=== PATIENT | female | born 2000 | race Caucasian/White ===

== ENCOUNTER 2022-04-20 18:35 | Emergency (ER) | payer MEDICAID ==
[~2022-04-20] VITALS: Ht 152.4 cm; Wt 59.0 kg
[2022-04-20 18:36] VITALS: BP_SYST 98
--- NOTE | 2022-04-20 18:36 | NUR ---
Patient to AMB1. Side rails up.AWAITING BED ASSIGNMENT.
--- NOTE | 2022-04-20 18:40 | NUR ---
STEVENSON Rowan at [facility] examining patient.
--- NOTE | 2022-04-20 18:41 | NUR ---
PT PRESENTS TO ED FROM WORK C/O CP RADIATING TO ABDOMEN WORSEN TODAY. PT REPORTS H/O ANXIETY. PT DENIES SOB AT THIS TIME.
[2022-04-20] MEDS ORDERED: ONDANSETRON HCL 4 MG/2 ML VIAL IVP ONE (19:15)
[2022-04-20] MEDS ORDERED: KETOROLAC TROMETHAMINE 30 MG VIAL IVP ONE (19:15)
[2022-04-20 19:54] LABS: BASOPHILS % (AUTO) 0.4 % (0.0-2.0); EOSINOPHILS % (AUTO) 0.8 % (0.0-4.0); HEMOGLOBIN 12.5 g/dL (12.0-16.0); LYMPHOCYTES # (AUTO) 1.7 K/uL (1.0-5.5); MEAN CORPUSCULAR HEMOGLOBIN 31 pg (27-31); MEAN CORPUSCULAR HGB CONC 35 % (32-36); MEAN CORPUSCULAR VOLUME 89 fL (79.0-98.0); MONOCYTES # (AUTO) 0.4 K/uL (0.0-1.0); MONOCYTES % (AUTO) 5.7 % (1.7-9.3); NEUTROPHILS # (AUTO) 4.2 K/uL (1.8-7.7); NEUTROPHILS % (AUTO) 66.1 % (40.0-70.0); PLATELET COUNT (AUTO) 210 K/uL (130-430); RED BLOOD CELL COUNT(AUTO) 4.03 MIL/uL (4.2-6.2); RED CELL DISTRIBUTION WIDTH 12.9 % (9.0-15.0); WHITE BLOOD COUNT (AUTO) 6.4 K/uL (4.5-11.0)
[2022-04-20 20:04] LABS: ANION GAP 7 (5-15); CALCIUM 8.8 mg/dL (8.4-11.0); CHLORIDE 102 mmol/L (98-107); CREATININE 0.53 mg/dL (0.55-1.30); GLUCOSE 88 mg/dL (70-99); POTASSIUM 3.5 mmol/L (3.5-5.1); SODIUM SERUM 140 mmol/L (136-145); UREA NITROGEN, BLOOD 9 mg/dL (8-21)
[2022-04-20 20:06] LABS: GFR AFRICAN AMERICAN 191 mL/min (>90)
--- NOTE | 2022-04-20 20:13 | NUR ---
Patient to ER bed 2 to gown for evaluation. Side rails up. Report given to Martín SERRANO.
--- NOTE | 2022-04-20 20:14 | NUR ---
# 20 gauge angiocath placed to . Use of asceptic technique. Opsite placed over site. Blood return noted. Blood for lab drawn from site. Flushed with 10 cc of normal saline. No evidence of infiltration noted. Patient tolerated well.
[2022-04-20 20:15] LABS: PROTHROMBIN TIME 10.5 SECS (9.5-12.5)
[2022-04-20 20:21] LABS: ALANINE AMINOTRANSFERASE 40 U/L (12-78); ALBUMIN 3.8 g/dL (3.4-4.8); ASPARTATE AMINOTRANSFERASE 26 U/L (10-37); TOTAL BILIRUBIN 0.2 mg/dL (0.0-1.0)
--- NOTE | 2022-04-20 20:38 | NUR ---
Pt to bed 2 via EMS w/ c/o generalized chest pain 05/09, SOB, Nausea (denies vomiting), Pt states generalized abdominal pain. Pt stated "I had SOB, but I have anxiety so I think it may have just been that". Pt states she takes Zoloft and Aripiprazole. Pt denies fevers, body aches, or chills. Grandmother at bedside at this time. Pt placed on manager cardiac cath and pulse oximetry.
[2022-04-20] MEDS ORDERED: IBUP-2018 PO (20:53)
[2022-04-20 21:07] LABS: CKMB RELATIVE INDEX 0.1 (0.0-2.9); CREATINE KINASE MB 0.6 ng/mL (0-3.6)
[2022-04-20] MEDS ORDERED: IMO2 PO (21:22)
[2022-04-20] MEDS ORDERED: ONDA-8 TL (21:22)
--- NOTE | 2022-04-20 21:36 | NUR ---
Patient given written and verbal discharge instructions and verbalizes understanding. ER MD discussed with patient the results and treatment provided. Patient in stable condition. ID arm band removed. IV catheter removed intact and dressing applied, no active bleeding. Rx of loperamide, ibuprofen, zofran given. Patient educated on pain management and to follow up with PMD. Pain Scale 4/10. Opportunity for questions provided and answered. Medication side effect fact sheet provided.
[2022-04-20 21:37] VITALS: BP_SYST 124
== END 2022-04-20 21:36 | disposition home or self-care (01) ==
LOC: SED 18:35
DX: A08.4 Viral intestinal infection, unspecified (principal); R07.9 Chest pain, unspecified; F41.9 Anxiety disorder, unspecified; E86.0 Dehydration; F12.90 Cannabis use, unspecified, uncomplicated; Z79.899 Other long term (current) drug therapy
CPT/HCPCS: 99285; 96374; 71045; 96375; 80053; 82550; 82553; 85025; 85610; 85730; 84484; 36415; 93005; J1885; J2405